=== PATIENT | male | born 1960 | race Caucasian/White ===

== ENCOUNTER 2021-02-23 14:40 | Emergency (ER) | payer OTHER ==
[2021-02-23] MEDS: fentaNYL 50 MCG/ML SDV IVPUSH ONE ×3 (14:45→16:08)
[2021-02-23] MEDS ORDERED: Sodium Chloride 0.9% 10 ML Syringe FLUSH PRN (14:49)
[2021-02-23 15:14] LABS: PTT,PARTIAL THROMBOPLSTIN TIME 23.6 SEC (25.6-32.8)
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
[2021-02-23] MEDS: ceFAZolin 1 GM Vial IVPUSH ONE (15:26)
[2021-02-23] MEDS: Diphtheria,Pertussis(Acell),Tetanus Vaccine 0.5 ML Syringe IM ONE (15:28)
[2021-02-23 15:30] LABS: ANION GAP 16.1 mmol/L (5-15); CHLORIDE,CL 98 mmol/L (98-107); SODIUM,NA 136 mmol/L (136-145)
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
[2021-02-23] MEDS: Iopamidol 612 MG/ML 100 ML Bottle IVPUSH ONE (17:03)
[2021-02-23] MEDS: HYDROmorphone 1 MG/ML Syringe IVPUSH ONE (17:34)
[2021-02-23 18:05] VITALS: BP 100/57; PULSE 72
== END 2021-02-23 18:18 | disposition short-term general hospital (02) ==
LOC: VM.ED 14:40
DX: S22.061A Stable burst fracture of T7-T8 vertebra, initial encounter for closed fracture (principal); S22.071A Stable burst fracture of T9-T10 vertebra, initial encounter for closed fracture; M25.461 Effusion, right knee; I25.10 Atherosclerotic heart disease of native coronary artery without angina pectoris; Z95.5 Presence of coronary angioplasty implant and graft; Z79.82 Long term (current) use of aspirin; Z79.02 Long term (current) use of antithrombotics/antiplatelets; Z79.899 Other long term (current) drug therapy; Z23 Encounter for immunization; V59.69XA Unspecified occupant of pick-up truck or van injured in collision with other motor vehicles in traffic accident, initial encounter; Y92.410 Unspecified street and highway as the place of occurrence of the external cause
CPT/HCPCS: 71260; 73590-LT; 73590-RT; 74177; 80053; 84484; 85025; 85610; 85730; 90471; 90715; 93005; 93010; 96374; 96375; 96376; 99284; 99285-25; J0690; J1170; J3010; Q9967